=== PATIENT | female | born 1990 | race Caucasian/White ===

== ENCOUNTER → 2022-10-08 | Outpatient (CLI) | payer OTHER ==
[2022-10-08 16:34] LABS: BASO % 0.4 % (0.0-1.0); EOS # 0.1 10*3/uL (0.0-0.4); EOS % 1.7 % (1.0-4.0); HEMATOCRIT 39.1 % (37.0-47.0); LYMPH # 2.7 10*3/uL (1.3-4.4); LYMPH % 35.7 % (27.0-41.0); MEAN CELL VOLUME 87.9 fl (81.0-99.0); MEAN CORPUSCULAR HGB 28.5 pg (27.0-31.0); MEAN CORPUSCULAR HGB CONC 32.5 g/dl (33.0-37.0); MEAN PLATELET VOLUME 9.6 fl (9.6-12.3); MONO # 0.3 10*3/uL (0.1-1.0); MONO % 3.9 % (3.0-9.0); NEUT # 4.3 10*3/uL (2.3-7.9); PLATELET COUNT AUTOMATED 263 10*3/uL (130-400); RED BLOOD COUNT 4.45 10*6/uL (4.10-5.10); WHITE BLOOD COUNT 7.5 10*3/uL (4.8-10.8)
[2022-10-08 17:16] LABS: FREE T4 1.06 ng/dl (0.89-1.76)
[2022-10-08 17:28] LABS: RUBELLA IgG ANTIBODY 59.6 IU/mL (0-9.9); VITAMIN D, 25-HYDROXY 50.9 ng/mL (30-100)
[2022-10-09 05:06] LABS: HEPATITIS B SURFACE AG Negative (Negative)
[2022-10-09 08:09] LABS: DHEA SULFATE 49.6 ug/dL (84.8-378.0)
== END | disposition home or self-care (01) ==
LOC: LAB 15:49
PROVIDERS: ATTEND Registered Nurse
DX: Z01.818 Encounter for other preprocedural examination (principal); Z01.83 Encounter for blood typing; Z12.31 Encounter for screening mammogram for malignant neoplasm of breast; Z11.4 Encounter for screening for human immunodeficiency virus [HIV]; R53.83 Other fatigue; Z11.59 Encounter for screening for other viral diseases; E28.2 Polycystic ovarian syndrome